=== PATIENT | male | born 1955 | race African-American/Black ===

== ENCOUNTER 2019-04-21 10:57 | Emergency (ER) | payer OTHER ==
[~2019-04-21] VITALS: Ht 182.9 cm; Wt 85.0 kg
[2019-04-21 11:03] VITALS: BP 151/111
== END 2019-04-21 14:57 | disposition home or self-care (01) ==
LOC: ER 10:57
DX: S01.81XA Laceration without foreign body of other part of head, initial encounter (principal); Y08.89XA Assault by other specified means, initial encounter; Y93.89 Activity, other specified; Y92.89 Other specified places as the place of occurrence of the external cause; Y99.8 Other external cause status
CPT/HCPCS: 12011; 99284

== ENCOUNTER 2019-04-23 09:25 | Emergency (ER) | payer SELFPAY ==
[~2019-04-23] VITALS: Ht 182.9 cm; Wt 95.0 kg
[2019-04-23 10:35] VITALS: BP 142/71
== END 2019-04-23 10:40 | disposition home or self-care (01) ==
LOC: ER 09:25
DX: Z48.00 Encounter for change or removal of nonsurgical wound dressing (principal); S60.41 Abrasion of fingers; X58.XXXD Exposure to other specified factors, subsequent encounter
CPT/HCPCS: 99283

== ENCOUNTER 2019-05-21 12:33 | Emergency (ER) | payer SELFPAY ==
[~2019-05-21] VITALS: Ht 177.8 cm; Wt 100.0 kg
[2019-05-21 12:58] VITALS: BP 113/55
== END 2019-05-21 15:35 | disposition home or self-care (01) ==
LOC: ER 12:33
DX: Z48.02 Encounter for removal of sutures (principal)
CPT/HCPCS: 99281; Z7610